=== PATIENT | male | born 1980 | race Caucasian/White ===

== ENCOUNTER 2024-03-30 08:41 | Emergency (ER) | payer MEDICAID ==
[~2024-03-30] VITALS: Ht 172.7 cm; Wt 79.5 kg
[2024-03-30] MEDS ORDERED: CEPH-585 PO (09:30)
[2024-03-30] MEDS ORDERED: IBUP-1984 PO (09:31)
[2024-03-30] MEDS: ketorolac trometh. 30mg/ml inj. IM ONE (09:33)
[2024-03-30 09:36] VITALS: BP 122/87; PULSE 79; RESP 16; TEMP 97.1; O2SAT 98
== END 2024-03-30 10:00 | disposition home or self-care (01) ==
LOC: ER 08:43
DX: L02.612 Cutaneous abscess of left foot (principal); L03.116 Cellulitis of left lower limb; Z79.1 Long term (current) use of non-steroidal anti-inflammatories (NSAID); Z79.2 Long term (current) use of antibiotics
CPT/HCPCS: 96372; 99283; J1885